=== PATIENT | male | born 1935 | race Caucasian/White ===

== ENCOUNTER 2017-07-13 11:23 | Outpatient (CLI) | payer BC | END 2017-07-13 11:24 | disposition home or self-care (01) | LOC: BICRAD 11:23 | PROVIDERS: ATTEND Chiropractor | DX: M54.5 Low back pain (principal); M47.816 Spondylosis without myelopathy or radiculopathy, lumbar region; M12.88 Other specific arthropathies, not elsewhere classified, other specified site; M25.78 Osteophyte, vertebrae; Z91.81 History of falling | CPT/HCPCS: 72110 ==

== ENCOUNTER 2018-05-02 07:40 | Day surgery (SDC) | payer BC ==
[2018-05-01 14:40] VITALS: BMI 40.3
[~2018-05-02 07:40] MED LIST: Cyclopentolate 1% Opth Drop 2 ML BOT R EYE SCH; Fluorouracil 100 MG, Enoxaparin Sodium 25 MG, EPINEPHrine 0.3 MG in Ophthalmic Irrigati... IVPB SCH; Phenylephrine 2.5% Ophth Soln 5 ML BOT R EYE SCH
[2018-05-02] MEDS ORDERED: Cyclopentolate 1% Opth Drop 2 ML BOT ONE (08:23)
[2018-05-02] MEDS ORDERED: Phenylephrine 2.5% Ophth Soln 5 ML BOT ONE (08:23)
[2018-05-02] MEDS ORDERED: Midazolam HCl 2 mg/2 ml Vial ONE (08:47)
[2018-05-02] MEDS ORDERED: PROPOFOL 20 ML ONE (08:47)
--- NOTE | 2018-05-02 10:47 | OP ---
DATE OF PROCEDURE: 05/02/2018 PREOPERATIVE DIAGNOSIS: Epiretinal membrane, right eye. POSTOPERATIVE DIAGNOSIS: Epiretinal membrane, right eye. PROCEDURE: Pars plana vitrectomy and membrane peel, right eye. SURGEON: Adal Rivers M.D. ANESTHESIA: Local with monitored anesthesia care. PROCEDURE IN DETAIL: The patient was identified in the preoperative holding area. Appropriate infor med consent for the planned surgical procedure on the right eye had been obtained. The patient was t ransported to the operative suite where appropriate cardiopulmonary monitoring established. Local an esthesia obtained using retrobulbar and modified Van Lint lid block using 50:50 mixture of 4% lidocai ne, 0.75% bupivacaine. The patient was prepped and draped in the usual sterile manner for ophthalmic surgery on the right eye. Lid speculum was placed in the right eye. The 25-gauge trocars placed in conjunctiva and sclera supratemporally, inferotemporally, and supranasally. Infusion line was place d inferotemporally. Light pipe and vitreous cutter were inserted into the eye. Core vitrectomy was performed. Indocyanine green dye was infused into the posterior pole x1, identifying the epiretinal membrane. This was elevated using membrane scraper and peeled across the macula using end-gripping f orceps. Wide field viewing system used to examine the retina 360 degrees. No holes, breaks or tears were identified. Trocars were removed and eye was noted to retain pressure well. Retrobulbar Kenal og and subconjunctival Ancef were placed. Antibiotic ointment was placed, and the eye was patched an d shielded. The patient was taken to the postoperative recovery unit in good condition having suffer ed no immediate perioperative complications. DISCHARGE INSTRUCTIONS: The patient was instructed to keep patch and shield on, avoid lifting or tae ding, and follow up with Dr. Rivers.
[2018-05-02] MEDS ORDERED: Maxitrol 0.1% Opth Oint 3.5 GM TUBE ONE (11:46)
[2018-05-02] MEDS ORDERED: Bupivacaine 0.75% 10 ML AMP ONE (11:46)
[2018-05-02] MEDS ORDERED: Triamcinolone 40 MG/ML VIAL ONE (11:46)
[2018-05-02] MEDS ORDERED: Lidocaine 1% PF 5 ML VIAL ONE (11:46)
[2018-05-02] MEDS ORDERED: Lidocaine 4% PF 5 ML AMP ONE (11:46)
[2018-05-02] MEDS ORDERED: PROPOFOL 200 MG/20 ML VIAL ONE (11:46)
[2018-05-02] MEDS ORDERED: Indocyanine Green 25 MG/10 ML VIAL ONE (11:46)
[2018-05-02] MEDS ORDERED: CEFAZOLIN 1 GM VIAL ONE (11:46)
== END 2018-05-02 10:20 | disposition home or self-care (01) ==
LOC: SDC 07:40
PROVIDERS: ATTEND Ophthalmology Retina Specialist
PROC: 08943ZZ Drainage of Right Vitreous, Percutaneous Approach (ICD-10-PCS; principal; 2018-05-02)
DX: H35.371 Puckering of macula, right eye (principal); Z79.01 Long term (current) use of anticoagulants; Z79.4 Long term (current) use of insulin; Z79.811 Long term (current) use of aromatase inhibitors; Z79.899 Other long term (current) drug therapy; Z88.2 Allergy status to sulfonamides; Z88.8 Allergy status to other drugs, medicaments and biological substances
CPT/HCPCS: 36416; J0171; J0690; J1650; J2001; J2250; J2704; J3301; J3490; J9190

== ENCOUNTER 2023-02-01 19:30 | Outpatient (CLI) | payer MEDICARE, BC | END 2023-02-01 19:31 | disposition home or self-care (01) | LOC: SLEEPLAB 19:30 | PROVIDERS: ATTEND Internal Medicine | DX: G47.33 Obstructive sleep apnea (adult) (pediatric) (principal); E11.9 Type 2 diabetes mellitus without complications; I10 Essential (primary) hypertension | CPT/HCPCS: 95810 ==

== ENCOUNTER 2025-04-29 15:00 | Emergency (ER) | payer MEDICARE, BC ==
[2025-04-29 16:52] LABS: #Basophils 0.05 10x3/uL (0.0-0.2); #Eosinophils 0.27 10x3/uL (0.0-0.7); #Monocytes 0.94 10x3/uL (0.11-0.59); #Neutrophils 8.16 10x3/uL (1.40-6.50); %Basophils 0.5 % (0.0-1.0); %Eosinophils 2.5 % (0.0-10.0); %Lymphocytes 12.1 % (21.0-51.0); %Monocytes 8.7 % (0.0-10.0); %Neutrophils 75.9 % (42.0-75.0); Hematocrit 44.9 % (42.0-52.0); Hemoglobin 13.5 g/dL (14.0-18.0); Mean Corpuscular Hemoglobin 28.3 pg (27.0-31.0); Mean Corpuscular Volume 94.1 fL (78.0-98.0); Platelet Count 249 10x3/uL (130-400); Red Blood Cell (RBC) Count 4.77 mill/uL (4.70-6.10); White Blood Cell (WBC) Count 10.75 10x3/uL (4.8-10.8)
[2025-04-29 17:09] LABS: ALT (SGPT) 12 U/L (Less than 45); AST (SGOT) 17 U/L (11-34); Albumin 3.2 g/dL (3.1-4.5); Alkaline Phosphatase 70 U/L (40-110); Anion Gap 14 mmol/L (10-20); BUN (Urea Nitrogen) 25 mg/dL (8.4-25.7); Bilirubin, Total 0.4 mg/dL (0.3-1.2); Calc. Creatinine Clearance 0 mL/min (70-130); Calcium 9.0 mg/dL (7.8-10.44); Carbon Dioxide 25 mmol/L (23-31); Chloride 104 mmol/L (98-107); Globulin 3.6 g/dL (2.4-3.5); Glucose 57 mg/dL (83-110); Potassium 5.2 mmol/L (3.5-5.1); Sodium 138 mmol/L (136-145)
== END 2025-04-29 17:50 | disposition home or self-care (01) ==
LOC: ERS 15:00
DX: L03.115 Cellulitis of right lower limb (principal); E11.9 Type 2 diabetes mellitus without complications; I10 Essential (primary) hypertension
CPT/HCPCS: 36415; 80053; 83605; 85025; 99283

== ENCOUNTER 2025-05-23 19:50 | Inpatient (IN) | payer MEDICARE ==
[~2025-05-23 19:50] MED LIST changes: -Cyclopentolate 1% Opth Drop 2 ML BOT R EYE SCH; -Fluorouracil 100 MG, Enoxaparin Sodium 25 MG, EPINEPHrine 0.3 MG in Ophthalmic Irrigati... IVPB SCH; +Iopamidol-370 76% 500 ML MDV (1 ML CHARGE) ONE; -Phenylephrine 2.5% Ophth Soln 5 ML BOT R EYE SCH
[2025-05-23] MEDS ORDERED: Ondansetron PF 4 MG/2 ML Vial ONE (20:27)
[2025-05-23 20:28] LABS: #Basophils 0.04 10x3/uL (0.0-0.2); #Eosinophils Less than 0.03 10x3/uL (0.0-0.7); #Monocytes 1.48 10x3/uL (0.11-0.59); #Neutrophils 20.78 10x3/uL (1.40-6.50); %Basophils 0.2 % (0.0-1.0); %Eosinophils 0.0 % (0.0-10.0); %Lymphocytes 2.9 % (21.0-51.0); %Monocytes 6.4 % (0.0-10.0); %Neutrophils 89.9 % (42.0-75.0); Hematocrit 50.6 % (42.0-52.0); Hemoglobin 15.6 g/dL (14.0-18.0); Mean Corpuscular Hemoglobin 28.0 pg (27.0-31.0); Mean Corpuscular Volume 90.7 fL (78.0-98.0); Platelet Count 245 10x3/uL (130-400); Red Blood Cell (RBC) Count 5.58 mill/uL (4.70-6.10); White Blood Cell (WBC) Count 23.11 10x3/uL (4.8-10.8)
[2025-05-23 20:41] LABS: INR-International Normal Ratio 1.2; Prothrombin Time 15.5 sec (12.0-14.7)
[2025-05-23 20:42] LABS: PTT 32.2 sec (22.9-36.1)
[2025-05-23 20:58] LABS: ALT (SGPT) 123 U/L (Less than 45); AST (SGOT) 331 U/L (11-34); Albumin 3.2 g/dL (3.1-4.5); Alkaline Phosphatase 77 U/L (40-110); Anion Gap 25 mmol/L (10-20); BUN (Urea Nitrogen) 38 mg/dL (8.4-25.7); Bilirubin, Total 0.7 mg/dL (0.3-1.2); Calc. Creatinine Clearance 0 mL/min (70-130); Calcium 9.2 mg/dL (7.8-10.44); Carbon Dioxide 18 mmol/L (23-31); Chloride 106 mmol/L (98-107); Globulin 4.3 g/dL (2.4-3.5); Glucose 139 mg/dL (83-110); Lipase 20 U/L (8-78); Potassium 5.1 mmol/L (3.5-5.1); Sodium 144 mmol/L (136-145)
[2025-05-23 21:08] LABS: CK (CPK) 15439 U/L (30-200)
[2025-05-23] MEDS ORDERED: Glucagon 1 MG/ML KIT IM PRN (22:10)
[2025-05-23] MEDS ORDERED: Dextrose 50% Abboject 50 ML SYRINGE SLOW IVP PRN (22:10)
[2025-05-24 00:36] LABS: Cocaine Metabolite Screen Negative (Negative); THC/Cannabinoid Screen Negative (Negative); Tricyclic Screen Negative (Negative)
[2025-05-24 00:37] LABS: Bacteria/HPF None Seen HPF (None Seen); CAUTI Indications for Culture Spinal Cord Injury; Glucose, Urine (Dipstick) Greater than 1000 mg/dL (Negative); Leukocyte Negative Leu/uL (Negative); Protein, Urine (Dipstick) 30 mg/dL (Neg-Trace); Specific Gravity, Urine 1.035 (1.002-1.036); WBC/HPF 0-3 HPF (0-3)
[2025-05-24 00:39] LABS: Urine Culture Reflex No No
[2025-05-24 00:48] LABS: INR-International Normal Ratio 1.3; PTT 33.8 sec (22.9-36.1); Prothrombin Time 16.4 sec (12.0-14.7)
[2025-05-24 00:48] LABS: Magnesium 2.6 mg/dL (1.6-2.6)
[2025-05-24 01:11] VITALS: BMI 32.5
[2025-05-24] MEDS: Norepinephrine 8 MG/0.9% NS 250 ML IVPB SCH (01:30)
[2025-05-24] MEDS: cefTRIAXone\\ROCEPHIN 1 GM in Sodium Chloride 0.9% 100 ML IVPB SCH (01:35)
[2025-05-24] MEDS: Acetaminophen 325 MG TAB PO SCH (01:35)
[2025-05-24 01:49] LABS: CK (CPK) 18997 U/L (30-200)
[2025-05-24 01:51] LABS: ALT (SGPT) 133 U/L (Less than 45); AST (SGOT) 396 U/L (11-34); Albumin 2.6 g/dL (3.1-4.5); Alkaline Phosphatase 66 U/L (40-110); Anion Gap 22 mmol/L (10-20); BUN (Urea Nitrogen) 36 mg/dL (8.4-25.7); Bilirubin, Total 0.4 mg/dL (0.3-1.2); Calc. Creatinine Clearance 47 mL/min (70-130); Calcium 8.3 mg/dL (7.8-10.44); Carbon Dioxide 16 mmol/L (23-31); Chloride 109 mmol/L (98-107); Globulin 3.6 g/dL (2.4-3.5); Glucose 137 mg/dL (83-110); Potassium 4.5 mmol/L (3.5-5.1); Sodium 142 mmol/L (136-145)
[2025-05-24 03:20] LABS: #Basophils 0.04 10x3/uL (0.0-0.2); #Eosinophils Less than 0.03 10x3/uL (0.0-0.7); #Monocytes 2.47 10x3/uL (0.11-0.59); #Neutrophils 26.43 10x3/uL (1.40-6.50); %Basophils 0.1 % (0.0-1.0); %Eosinophils 0.0 % (0.0-10.0); %Lymphocytes 3.3 % (21.0-51.0); %Monocytes 8.2 % (0.0-10.0); %Neutrophils 87.7 % (42.0-75.0); Hematocrit 46.0 % (42.0-52.0); Hemoglobin 14.7 g/dL (14.0-18.0); Mean Corpuscular Hemoglobin 29.0 pg (27.0-31.0); Mean Corpuscular Volume 90.7 fL (78.0-98.0); Platelet Count 232 10x3/uL (130-400); Red Blood Cell (RBC) Count 5.07 mill/uL (4.70-6.10); White Blood Cell (WBC) Count 30.12 10x3/uL (4.8-10.8)
[2025-05-24] MEDS: Norepinephrine 8 MG/0.9% NS 250 ML ONE (05:59)
[2025-05-24] MEDS: Pantoprazole 40 MG VIAL IVP SCH (09:03)
[2025-05-24] MEDS: Mupirocin 1 GM TUBE NASAL DECOLONIZATION NASAL SCH (09:03)
[2025-05-24] MEDS: Methocarbamol 500 MG TAB PO SCH (09:05)
[2025-05-24] MEDS ORDERED: TETANUS, DIPHTHERIA TOX,ADULT (TDVAX) 0.5 ML VIAL IM ONE ×2 (10:15→12:00)
[2025-05-24] MEDS ORDERED: TETANUS AND DIPHTHERIA TOX/PF 0.5 ML DISP.SYRIN IM SCH (12:00)
[2025-05-24] MEDS: Vasopressin In 0.9 % NaCl 100 ML ONE (12:10)
[2025-05-24] MEDS: Hydrocortisone Sod Succ/PF 100 mg/2 ml Vial IVP SCH (12:30)
[2025-05-24] MEDS: TETANUS, DIPHTHERIA TOX,ADULT (TDVAX) 0.5 ML VIAL IM ONE (13:20)
[2025-05-24] MEDS: oxyCODONE 5 MG TAB PO PRN (21:12)
[2025-05-25] MEDS: Albumin 25% 25 GM (100 mL) BOT IVPB SCH (02:38)
[2025-05-25 05:06] LABS: Hematocrit 44.7 % (42.0-52.0); Hemoglobin 13.1 g/dL (14.0-18.0); Mean Corpuscular Hemoglobin 28.1 pg (27.0-31.0); Mean Corpuscular Volume 95.7 fL (78.0-98.0); Platelet Count 227 10x3/uL (130-400); Red Blood Cell (RBC) Count 4.67 mill/uL (4.70-6.10); White Blood Cell (WBC) Count 29.70 10x3/uL (4.8-10.8)
[2025-05-25 05:22] LABS: ALT (SGPT) 133 U/L (Less than 45); AST (SGOT) 170 U/L (11-34); Albumin 2.7 g/dL (3.1-4.5); Alkaline Phosphatase 86 U/L (40-110); Anion Gap 24 mmol/L (10-20); BUN (Urea Nitrogen) 54 mg/dL (8.4-25.7); Bilirubin, Total 0.3 mg/dL (0.3-1.2); CK (CPK) 4204 U/L (30-200); Calc. Creatinine Clearance 39 mL/min (70-130); Calcium 8.5 mg/dL (7.8-10.44); Carbon Dioxide 14 mmol/L (23-31); Chloride 112 mmol/L (98-107); Globulin 3.5 g/dL (2.4-3.5); Glucose 236 mg/dL (83-110); Potassium 5.0 mmol/L (3.5-5.1); Sodium 145 mmol/L (136-145)
[2025-05-25 05:24] LABS: Anisocytosis SLIGHT = 6-15 cells HPF (0-5); Platelet Adequacy Comment Platelets Normal; Polychromasia SLIGHT = 2-3 cells HPF (0-2)
[2025-05-25] MEDS: Vasopressin In 0.9 % NaCl 40 UNIT in Premix 1 BAG IV SCH (07:17)
[2025-05-25] MEDS: Heparin 5,000 UNITS/ML VIAL SC SCH (07:55)
[2025-05-26 04:54] LABS: #Basophils 0.06 10x3/uL (0.0-0.2); #Eosinophils Less than 0.03 10x3/uL (0.0-0.7); #Monocytes 1.53 10x3/uL (0.11-0.59); #Neutrophils 21.84 10x3/uL (1.40-6.50); %Basophils 0.2 % (0.0-1.0); %Eosinophils 0.0 % (0.0-10.0); %Lymphocytes 2.7 % (21.0-51.0); %Monocytes 6.2 % (0.0-10.0); %Neutrophils 88.8 % (42.0-75.0); Hematocrit 42.5 % (42.0-52.0); Hemoglobin 12.6 g/dL (14.0-18.0); Mean Corpuscular Hemoglobin 28.0 pg (27.0-31.0); Mean Corpuscular Volume 94.4 fL (78.0-98.0); Platelet Count 206 10x3/uL (130-400); Red Blood Cell (RBC) Count 4.50 mill/uL (4.70-6.10); White Blood Cell (WBC) Count 24.62 10x3/uL (4.8-10.8)
[2025-05-26 05:11] LABS: ALT (SGPT) 101 U/L (Less than 45); AST (SGOT) 78 U/L (11-34); Albumin 2.4 g/dL (3.1-4.5); Alkaline Phosphatase 91 U/L (40-110); Anion Gap 22 mmol/L (10-20); BUN (Urea Nitrogen) 49 mg/dL (8.4-25.7); Bilirubin, Total 0.2 mg/dL (0.3-1.2); CK (CPK) 1668 U/L (30-200); Calc. Creatinine Clearance 47 mL/min (70-130); Calcium 8.7 mg/dL (7.8-10.44); Carbon Dioxide 15 mmol/L (23-31); Chloride 113 mmol/L (98-107); Globulin 3.6 g/dL (2.4-3.5); Glucose 211 mg/dL (83-110); Potassium 4.4 mmol/L (3.5-5.1); Sodium 146 mmol/L (136-145)
[2025-05-26] MEDS ORDERED: oxyCODONE 5 MG TAB PO PRN (09:32)
[2025-05-26] MEDS: Hydrocortisone Sod Succ/PF 100 mg/2 ml Vial IVP SCH ×2 (11:07→17:52)
[2025-05-26] MEDS: Albumin 25% 25 GM (100 mL) BOT IVPB SCH (11:07)
[2025-05-27 04:24] LABS: #Basophils 0.04 10x3/uL (0.0-0.2); #Eosinophils Less than 0.03 10x3/uL (0.0-0.7); #Monocytes 1.10 10x3/uL (0.11-0.59); #Neutrophils 18.74 10x3/uL (1.40-6.50); %Basophils 0.2 % (0.0-1.0); %Eosinophils 0.0 % (0.0-10.0); %Lymphocytes 2.3 % (21.0-51.0); %Monocytes 5.3 % (0.0-10.0); %Neutrophils 91.0 % (42.0-75.0); Hematocrit 40.3 % (42.0-52.0); Hemoglobin 12.8 g/dL (14.0-18.0); Mean Corpuscular Hemoglobin 28.8 pg (27.0-31.0); Mean Corpuscular Volume 90.6 fL (78.0-98.0); Platelet Count 174 10x3/uL (130-400); Red Blood Cell (RBC) Count 4.45 mill/uL (4.70-6.10); White Blood Cell (WBC) Count 20.60 10x3/uL (4.8-10.8)
[2025-05-27 04:39] LABS: ALT (SGPT) 74 U/L (Less than 45); AST (SGOT) 43 U/L (11-34); Albumin 2.5 g/dL (3.1-4.5); Alkaline Phosphatase 83 U/L (40-110); Anion Gap 16 mmol/L (10-20); BUN (Urea Nitrogen) 59 mg/dL (8.4-25.7); Bilirubin, Total 0.3 mg/dL (0.3-1.2); CK (CPK) 876 U/L (30-200); Calc. Creatinine Clearance 39 mL/min (70-130); Calcium 8.6 mg/dL (7.8-10.44); Carbon Dioxide 21 mmol/L (23-31); Chloride 114 mmol/L (98-107); Globulin 3.3 g/dL (2.4-3.5); Glucose 201 mg/dL (83-110); Potassium 2.9 mmol/L (3.5-5.1); Sodium 148 mmol/L (136-145)
[2025-05-27] MEDS: Potassium Chloride 40 MEQ in Premix 1 BAG IVPB SCH (06:28)
[2025-05-27] MEDS ORDERED: Magnesium 2 GM/50 ML(in water) 2 GM in Premix 1 BAG IVPB PRN (07:15)
[2025-05-27] MEDS ORDERED: PHOS-NAK 1 PKT PACK PO PRN (07:15)
[2025-05-27] MEDS ORDERED: Bisacodyl 10 MG SUPP PR PRN (08:29)
[2025-05-27] MEDS: Senokot S 8.6-50 MG TAB PO SCH (09:00)
[2025-05-27] MEDS: Electrolyte Replacement Protocol 1 EACH FS ONE (18:08)
[2025-05-27] MEDS: FLU (Fluad Triv) 25-26 (65UP)PF 45 MCG/0.5 ML Syringe IM ONE (18:08)
[2025-05-28 04:39] LABS: #Basophils 0.04 10x3/uL (0.0-0.2); #Eosinophils 0.10 10x3/uL (0.0-0.7); #Monocytes 1.28 10x3/uL (0.11-0.59); #Neutrophils 18.93 10x3/uL (1.40-6.50); %Basophils 0.2 % (0.0-1.0); %Eosinophils 0.5 % (0.0-10.0); %Lymphocytes 2.1 % (21.0-51.0); %Monocytes 6.1 % (0.0-10.0); %Neutrophils 90.3 % (42.0-75.0); Hematocrit 35.0 % (42.0-52.0); Hemoglobin 10.8 g/dL (14.0-18.0); Mean Corpuscular Hemoglobin 28.2 pg (27.0-31.0); Mean Corpuscular Volume 91.4 fL (78.0-98.0); Platelet Count 172 10x3/uL (130-400); Red Blood Cell (RBC) Count 3.83 mill/uL (4.70-6.10); White Blood Cell (WBC) Count 20.96 10x3/uL (4.8-10.8)
[2025-05-28 04:59] LABS: ALT (SGPT) 57 U/L (Less than 45); AST (SGOT) 35 U/L (11-34); Albumin 1.8 g/dL (3.1-4.5); Alkaline Phosphatase 63 U/L (40-110); Anion Gap 13 mmol/L (10-20); BUN (Urea Nitrogen) 62 mg/dL (8.4-25.7); Bilirubin, Total 0.3 mg/dL (0.3-1.2); CK (CPK) 553 U/L (30-200); Calc. Creatinine Clearance 47 mL/min (70-130); Calcium 7.3 mg/dL (7.8-10.44); Carbon Dioxide 24 mmol/L (23-31); Chloride 109 mmol/L (98-107); Globulin 2.7 g/dL (2.4-3.5); Glucose 184 mg/dL (83-110); Potassium 2.7 mmol/L (3.5-5.1); Sodium 143 mmol/L (136-145)
[2025-05-28] MEDS: Sodium Bicarbonate Tab 325 MG TAB PER TUBE PRN (09:56)
[2025-05-28] MEDS: Pancrelipase DR 12,000 1 CAP FS PRN (10:15)
[2025-05-28 13:38] LABS: Potassium 3.0 mmol/L (3.5-5.1)
[2025-05-28] MEDS: Potassium Chloride 20 MEQ in Premix 1 BAG IVPB PRN (14:04)
[2025-05-28 15:07] VITALS: BMI 36.8
[2025-05-28 20:50] LABS: Potassium 3.4 mmol/L (3.5-5.1)
[2025-05-29 04:36] LABS: #Basophils Less than 0.03 10x3/uL (0.0-0.2); #Eosinophils Less than 0.03 10x3/uL (0.0-0.7); #Monocytes 0.63 10x3/uL (0.11-0.59); #Neutrophils 11.56 10x3/uL (1.40-6.50); %Basophils 0.1 % (0.0-1.0); %Eosinophils 0.0 % (0.0-10.0); %Lymphocytes 3.5 % (21.0-51.0); %Monocytes 4.9 % (0.0-10.0); %Neutrophils 90.4 % (42.0-75.0); Hematocrit 35.3 % (42.0-52.0); Hemoglobin 11.0 g/dL (14.0-18.0); Mean Corpuscular Hemoglobin 28.2 pg (27.0-31.0); Mean Corpuscular Volume 90.5 fL (78.0-98.0); Platelet Count 194 10x3/uL (130-400); Red Blood Cell (RBC) Count 3.90 mill/uL (4.70-6.10); White Blood Cell (WBC) Count 12.79 10x3/uL (4.8-10.8)
[2025-05-29 05:02] LABS: ALT (SGPT) 67 U/L (Less than 45); AST (SGOT) 44 U/L (11-34); Albumin 2.0 g/dL (3.1-4.5); Alkaline Phosphatase 64 U/L (40-110); Anion Gap 13 mmol/L (10-20); BUN (Urea Nitrogen) 74 mg/dL (8.4-25.7); Bilirubin, Total 0.3 mg/dL (0.3-1.2); CK (CPK) 569 U/L (30-200); Calc. Creatinine Clearance 44 mL/min (70-130); Calcium 8.1 mg/dL (7.8-10.44); Carbon Dioxide 24 mmol/L (23-31); Chloride 118 mmol/L (98-107); Globulin 2.9 g/dL (2.4-3.5); Glucose 318 mg/dL (83-110); Potassium 3.4 mmol/L (3.5-5.1); Sodium 152 mmol/L (136-145)
[2025-05-29] MEDS: Albumin 25% 25 GM (100 mL) BOT IVPB SCH ×2 (05:43→13:04)
[2025-05-29 11:34] VITALS: BP 100/67
[2025-05-29 18:56] LABS: Anion Gap 15 mmol/L (10-20); BUN (Urea Nitrogen) 73 mg/dL (8.4-25.7); Calc. Creatinine Clearance 48 mL/min (70-130); Calcium 8.4 mg/dL (7.8-10.44); Carbon Dioxide 24 mmol/L (23-31); Chloride 116 mmol/L (98-107); Glucose 317 mg/dL (83-110); Potassium 4.0 mmol/L (3.5-5.1); Sodium 151 mmol/L (136-145)
[2025-05-29] MEDS: Hydrocortisone Sod Succ/PF 100 mg/2 ml Vial IVP SCH (20:59)
[2025-05-30] MEDS: Glycopyrrolate 0.4 MG/ 2 ML VIAL SLOW IVP SCH (00:16)
[2025-05-30] MEDS: Scopolamine 1 mg/72 hour Patch TD SCH (00:16)
[2025-05-30 04:09] LABS: #Basophils Less than 0.03 10x3/uL (0.0-0.2); #Eosinophils Less than 0.03 10x3/uL (0.0-0.7); #Monocytes 0.66 10x3/uL (0.11-0.59); #Neutrophils 9.00 10x3/uL (1.40-6.50); %Basophils 0.2 % (0.0-1.0); %Eosinophils 0.0 % (0.0-10.0); %Lymphocytes 5.3 % (21.0-51.0); %Monocytes 6.3 % (0.0-10.0); %Neutrophils 85.9 % (42.0-75.0); Hematocrit 30.2 % (42.0-52.0); Hemoglobin 9.6 g/dL (14.0-18.0); Mean Corpuscular Hemoglobin 28.4 pg (27.0-31.0); Mean Corpuscular Volume 89.3 fL (78.0-98.0); Platelet Count 180 10x3/uL (130-400); Red Blood Cell (RBC) Count 3.38 mill/uL (4.70-6.10); White Blood Cell (WBC) Count 10.47 10x3/uL (4.8-10.8)
[2025-05-30 04:31] LABS: ALT (SGPT) 57 U/L (Less than 45); AST (SGOT) 35 U/L (11-34); Albumin 3.1 g/dL (3.1-4.5); Alkaline Phosphatase 46 U/L (40-110); Anion Gap 15 mmol/L (10-20); BUN (Urea Nitrogen) 73 mg/dL (8.4-25.7); Bilirubin, Total 0.4 mg/dL (0.3-1.2); CK (CPK) 305 U/L (30-200); Calc. Creatinine Clearance 53 mL/min (70-130); Calcium 8.5 mg/dL (7.8-10.44); Carbon Dioxide 24 mmol/L (23-31); Chloride 118 mmol/L (98-107); Globulin 2.2 g/dL (2.4-3.5); Glucose 318 mg/dL (83-110); Potassium 3.7 mmol/L (3.5-5.1); Sodium 153 mmol/L (136-145)
[2025-05-30] MEDS ORDERED: oxyCODONE 5 MG TAB PER TUBE PRN (08:17)
[2025-05-30] MEDS ORDERED: PHOS-NAK 1 PKT PACK PER TUBE PRN (08:23)
[2025-05-30] MEDS ORDERED: Potassium Bicarbonate/Cit Ac 20 MEQ TAB PER TUBE PRN (08:30)
[2025-05-30] MEDS: Methocarbamol 500 MG TAB PER TUBE SCH (09:53)
[2025-05-31 06:49] LABS: #Basophils Less than 0.03 10x3/uL (0.0-0.2); #Eosinophils 0.03 10x3/uL (0.0-0.7); #Monocytes 0.68 10x3/uL (0.11-0.59); #Neutrophils 9.30 10x3/uL (1.40-6.50); %Basophils 0.2 % (0.0-1.0); %Eosinophils 0.3 % (0.0-10.0); %Lymphocytes 6.9 % (21.0-51.0); %Monocytes 6.0 % (0.0-10.0); %Neutrophils 82.2 % (42.0-75.0); Hematocrit 32.1 % (42.0-52.0); Hemoglobin 9.7 g/dL (14.0-18.0); Mean Corpuscular Hemoglobin 28.2 pg (27.0-31.0); Mean Corpuscular Volume 93.3 fL (78.0-98.0); Platelet Count 197 10x3/uL (130-400); Red Blood Cell (RBC) Count 3.44 mill/uL (4.70-6.10); White Blood Cell (WBC) Count 11.31 10x3/uL (4.8-10.8)
[2025-05-31 07:02] LABS: ALT (SGPT) 68 U/L (Less than 45); AST (SGOT) 53 U/L (11-34); Albumin 2.6 g/dL (3.1-4.5); Alkaline Phosphatase 49 U/L (40-110); Anion Gap 11 mmol/L (10-20); BUN (Urea Nitrogen) 54 mg/dL (8.4-25.7); Bilirubin, Total 0.4 mg/dL (0.3-1.2); Calc. Creatinine Clearance 72 mL/min (70-130); Calcium 7.9 mg/dL (7.8-10.44); Carbon Dioxide 26 mmol/L (23-31); Chloride 113 mmol/L (98-107); Globulin 2.4 g/dL (2.4-3.5); Glucose 368 mg/dL (83-110); Potassium 4.1 mmol/L (3.5-5.1); Sodium 146 mmol/L (136-145)
[2025-05-31 23:06] VITALS: TEMP 97.7
[2025-06-01] MEDS: Glycopyrrolate 0.4 MG/ 2 ML VIAL SLOW IVP SCH (01:59)
== END 2025-06-01 02:37 | disposition expired | DRG 551 ==
LOC: ERS 19:50 → ERHOLD 22:10 → CCU 05-24 00:06
PROVIDERS: ADMIT Surgery; ATTEND Surgery
PROC: 06HY33Z Insertion of Infusion Device into Lower Vein, Percutaneous Approach (ICD-10-PCS; principal; 2025-05-24)
PROC: 0T9B70Z Drainage of Bladder with Drainage Device, Via Natural or Artificial Opening (ICD-10-PCS; 2025-05-24)
PROC: 3E04329 Introduction of Other Anti-infective into Central Vein, Percutaneous Approach (ICD-10-PCS; 2025-05-24)
PROC: 3E043XZ Introduction of Vasopressor into Central Vein, Percutaneous Approach (ICD-10-PCS; 2025-05-24)
PROC: 30243J1 Transfusion of Nonautologous Serum Albumin into Central Vein, Percutaneous Approach (ICD-10-PCS; 2025-05-25)
PROC: 3E02340 Introduction of Influenza Vaccine into Muscle, Percutaneous Approach (ICD-10-PCS; 2025-05-27)
PROC: 5A0945A Assistance with Respiratory Ventilation, 24-96 Consecutive Hours, High Flow/Velocity Cannula (ICD-10-PCS; 2025-05-29)
DX: S12.500A Unspecified displaced fracture of sixth cervical vertebra, initial encounter for closed fracture (principal); G93.41 Metabolic encephalopathy; I21.A1 Myocardial infarction type 2; S22.079A Unspecified fracture of T9-T10 vertebra, initial encounter for closed fracture; S22.089A Unspecified fracture of T11-T12 vertebra, initial encounter for closed fracture; E87.20 Acidosis, unspecified; N17.9 Acute kidney failure, unspecified; E87.0 Hyperosmolality and hypernatremia; T79.6XXA Traumatic ischemia of muscle, initial encounter; I10 Essential (primary) hypertension; E11.9 Type 2 diabetes mellitus without complications; Z79.01 Long term (current) use of anticoagulants; Z85.46 Personal history of malignant neoplasm of prostate; Z98.890 Other specified postprocedural states; Z88.6 Allergy status to analgesic agent; Z88.2 Allergy status to sulfonamides; R40.2142 Coma scale, eyes open, spontaneous, at arrival to emergency department; R40.2252 Coma scale, best verbal response, oriented, at arrival to emergency department; R40.2362 Coma scale, best motor response, obeys commands, at arrival to emergency department; E78.5 Hyperlipidemia, unspecified; E03.9 Hypothyroidism, unspecified; M48.14 Ankylosing hyperostosis [Forestier], thoracic region; Z86.711 Personal history of pulmonary embolism; E87.70 Fluid overload, unspecified; W18.30XA Fall on same level, unspecified, initial encounter; I95.9 Hypotension, unspecified; Z51.5 Encounter for palliative care; Z66 Do not resuscitate; R57.8 Other shock; Z23 Encounter for immunization
CPT/HCPCS: 36415; 36416; 51702; 70450; 71045; 71260; 72125; 74018; 74177; 80053; 80306; 80307; 81001; 82550; 83036; 83605; 83690; 83735; 83880; 84100; 84484; 85025; 85610; 85730; 86850; 86900; 86901; 87040; 87149; 90715; 93005; 93306; 94760; 96361; 96374; 96375; 97139; G0390; J0696; J1644; J1720; J1815; J2272; J2405; J2470; J2543; J3010; J3480; J7030; J7070; J7120; P9047; Q9967